=== PATIENT | female | born 1985 | race African-American/Black ===

== ENCOUNTER 2023-01-29 14:30 | Emergency (ER) | payer SELFPAY ==
[~2023-01-29] VITALS: Ht 167.6 cm; Wt 82.0 kg
[2023-01-29 14:32] VITALS: BP 174/114
[2023-01-29 15:01] LABS: Basophils # (auto) 0 10 ^3/uL (0-0.2); Basophils % (auto) 0.5 % (0.0-2.0); Eosinophils # (auto) 0.1 10 ^3/uL (0-0.8); Eosinophils % (auto) 0.8 % (0.0-7.0); Hematocrit 41.4 % (36.0-46.0); Hemoglobin 13.7 g/dL (12.2-16.2); Lymphocytes % (auto) 13.7 % (10.0-50.0); Mean Corpuscular Hemoglobin 30.4 pg (28.0-32.0); Mean Corpuscular Hgb Conc. 33.1 g/dL (32.0-36.0); Mean Corpuscular Volume 91.9 fL (80.0-100.0); Monocytes # (auto) 0.6 10 ^3/uL (0-1.3); Monocytes % (auto) 7.5 % (0.0-12.0); Neutrophils # (auto) 5.8 10 ^3/uL (1.6-8.6); Neutrophils % (auto) 77.5 % (37.0-80.0); Red Cell Distribution Width 13.8 % (11.8-14.3); White Blood Cell 7.5 10^3/uL (4.4-10.8)
[2023-01-29 15:30] LABS: INR 1.04 (0.9-1.15); Partial Thromboplastin Time 26.5 sec (24.6-33.4)
[2023-01-29 15:45] LABS: Urine Bacteria NONE SEEN /hpf (None Seen); Urine Blood Negative /uL (Negative); Urine Mucus FEW (None Seen); Urine Specific Gravity 1.018 (1.001-1.035); Urine WBC 3 /hpf (0 - 5)
[2023-01-29 15:59] LABS: Albumin 3.8 g/dL (3.4-5.0); Calcium 8.7 mg/dL (8.5-10.1); Potassium 3.5 mmol/L (3.5-5.1)
[2023-01-29 16:04] LABS: BUN/Creatinine Ratio 12.1 (10.0-20.0); Bilirubin, Total 0.8 mg/dL (0.2-1.0); Total Protein 7.7 g/dL (6.4-8.2)
== END 2023-01-29 17:52 | disposition home or self-care (01) ==
LOC: ER 14:30
DX: F41.9 Anxiety disorder, unspecified (principal); F12.90 Cannabis use, unspecified, uncomplicated
CPT/HCPCS: 36415; 71045; 80053; 81001; 81025; 84484; 85025; 85379; 85610; 85730; 93005